=== PATIENT | female | born 1990 | race Caucasian/White ===

== ENCOUNTER 2017-12-06 13:06 | Emergency (ER) | payer SELFPAY ==
[2017-12-06 13:13] VITALS: BP 151/86; PULSE 89; TEMP 98.2; BMI 28.7
--- NOTE | 2017-12-06 13:39 | PDOC ---
Post Exposure HPI - General History Source: Patient Exam Limitations: No Limitations - History of Present Illness Initial Comments: 12/06/17 13:48 The patient is a 27 year old female, with no significant past medical history, who presents to the emergency department with, s/p puncture wound to the right palm. The patient works at a dental office, after cleaning up after a procedure she was poked by an IV needle in her right palm. She noted blood on her right palm and cleaned the area as per protocol. The patients tetanus is up to date. She came into the ED for medication and further evaluation. The patient she was working on reports he has no indication of HIV. She denies recent fevers, chills, headache or dizziness. She denies recent nausea, vomit, diarrhea or constipation. She denies recent dysuria, frequency, urgency or hematuria. She denies recent chest pain or shortness of breath. Allergies: NKA Past surgical history: None reported. Social history: Nonsmoker. Denies EtOH use and recreational drug use. <Vic Grant - Last Filed: 12/06/17 13:52> - General History Source: Patient Exam Limitations: No Limitations <Alejandra Land - Last Filed: 12/06/17 20:21> - General Chief Complaint: Non EmpBld/Body Flud Exposure Stated Complaint: STUCK BY NEEDLE Time Seen by Provider: 12/06/17 13:27 Past History <Vic Grant - Last Filed: 12/06/17 13:52> - Past Medical History COPD: No - Suicide/Smoking/Psychosocial Hx Smoking History: Never smoked Have you smoked in the past 12 months: No Information on smoking cessation initiated: No Hx Alcohol Use: No Drug/Substance Use Hx: No Substance Use Type: Marijuana <Alejandra Land - Last Filed: 12/06/17 20:21> - Past Medical History Allergies/Adverse Reactions: Allergies Allergy/AdvReac Type Severity Reaction Status Date / Time No Known Allergies Allergy Verified 12/06/17 13:09 Home Medications: Ambulatory Orders NK [No Known Home Medication] 12/06/17 Review of Systems - Review of Systems Able to Perform ROS?: Yes Comments:: 12/06/17 13:49 CONSTITUTIONAL: Absent: fever, no chills, no fatigue EYES: Absent: visual changes ENT: Absent: ear pain, no sore throat CARDIOVASCULAR: Absent: chest pain, no palpitations RESPIRATORY: Absent: cough, no SOB GI: Absent: abdominal pain, no nausea, no vomiting, no constipation, no diarrhea GENITOURINARY: Absent: dysuria, no frequency, no hematuria MUSKULOSKELETAL: Absent: back pain, no arthralgia, no myalgia HAND: Present: Puncture wound to the right palm. SKIN: Absent: rash NEURO: Absent: headache <Vic Grant - Last Filed: 12/06/17 13:52> *Physical Exam - Vital Signs Last Vital Signs Temp Pulse Resp BP Pulse Ox 98.2 F 89 18 151/86 100 12/06/17 13:10 12/06/17 13:10 12/06/17 13:10 12/06/17 13:10 12/06/17 13:10 - Physical Exam Comments: 12/06/17 13:52 GENERAL: Well-appearing, well-nourished. No apparent distress. HEENT: Normocephalic, atraumatic. PERRL, EOM intact. CARDIOVASCULAR: Normal S1, S2. Regular rate and rhythm. PULMONARY: Clear to auscultation bilaterally. ABDOMEN: Soft, non-distended, non-tender. EXTREMITIES: Normal ROM in all four extremities. No gross deformities. +HAND: Small pinhole to the palm. SKIN: Warm, dry. No rash NEUROLOGICAL: No focal neurological deficits. <Vic Grant - Last Filed: 12/06/17 13:52> - Vital Signs Last Vital Signs Temp Pulse Resp BP Pulse Ox 98.2 F 89 18 151/86 100 12/06/17 13:10 12/06/17 13:10 12/06/17 13:10 12/06/17 13:10 12/06/17 13:10 <Alejandra Land - Last Filed: 12/06/17 20:21> Medical Decision Making - Medical Decision Making 12/06/17 13:34 A/P: Patient with needlestick to right palm from a used IV. Patient reports that source patient's mother states patient is negative for HIV and hepatitis, radiation safety officer is attempting to have source patient tested. Patient is requesting PEP medication, will draw labs prior to administration. Tetanus received one year ago. 12/06/17 20:20 Laboratory Results - last 24 hr 12/06/17 12/06/17 12/06/17 13:53 13:53 13:53 WBC 6.0 RBC 4.26 Hgb 14.2 Hct 41.2 MCV 96.7 H MCH 33.2 MCHC 34.4 RDW 12.0 Plt Count 164 MPV 8.2 Neutrophils % 53.9 Lymphocytes % 37.8 Monocytes % 7.3 Eosinophils % 0.6 Basophils % 0.4 Sodium 141 Potassium 4.0 Chloride 106 Carbon Dioxide 28 Anion Gap 7 L BUN 10 Creatinine 0.7 Creat Clearance w eGFR > 60 Random Glucose 79 Uric Acid 4.6 Calcium 9.0 Phosphorus 3.8 Total Bilirubin 0.5 GGT 30 AST 19 ALT 18 Alkaline Phosphatase 39 L LD Total 151 Total Protein 7.4 Albumin 4.2 Triglycerides 67 Cholesterol 181 Urine HCG, Qual HIV 1&2 Antibody Screen Negative HIV P24 Antigen Negative 12/06/17 13:53 WBC RBC Hgb Hct MCV MCH MCHC RDW Plt Count MPV Neutrophils % Lymphocytes % Monocytes % Eosinophils % Basophils % Sodium Potassium Chloride Carbon Dioxide Anion Gap BUN Creatinine Creat Clearance w eGFR Random Glucose Uric Acid Calcium Phosphorus Total Bilirubin GGT AST ALT Alkaline Phosphatase LD Total Total Protein Albumin Triglycerides Cholesterol Urine HCG, Qual Negative HIV 1&2 Antibody Screen HIV P24 Antigen Is unremarkable, urine is negative, HIV is negative we'll DC patient home to follow-up with PMD on PEP <Alejandra Land - Last Filed: 12/06/17 20:21> *DC/Admit/Observation/Transfer - Attestations Scribe Attestion: Documentation prepared by Vic Grant, acting as clinical medical assistant for Alejandra Land NP. <Vic Grant - Last Filed: 12/06/17 13:52> - Discharge Dispostion Decision to Admit order: No <Alejandra Land - Last Filed: 12/06/17 20:21> Diagnosis at time of Disposition: Needle stick injury - Discharge Dispostion Disposition: HOME Condition at time of disposition: Stable - Referrals Referrals: Corrina Lemos MD [Staff Physician] - - Patient Instructions Additional Instructions: I have given you a supply of medication, please make sure to take as prescribed one of the medications was given for 7 days. If at 30, you need to make an appointment within one week for full course of therapy for the 7 day supply. Please follow-up with her primary care doctor to follow up with hepatitis screening, please let them call medical records to obtain results. [phone] - Post Discharge Activity Forms/Work/School Notes: Back to Work
[2017-12-06] MEDS ORDERED: HIV POST EXPOSURE PROPHYLAXIS KIT NR ONE (13:40)
[2017-12-06 14:03] LABS: BASO % 0.4 % (0-2.0); EOS % 0.6 % (0-4.5); HEMATOCRIT 41.2 % (32.4-45.2); HEMOGLOBIN 14.2 GM/dL (10.7-15.3); LYMPH % 37.8 % (8-40); MCH 33.2 pg (25.7-33.7); MCHC 34.4 g/dl (32.0-36.0); MEAN CELL VOLUME 96.7 fl (80-96); MEAN PLT VOLUME 8.2 fl (7.5-11.1); MONO % 7.3 % (3.8-10.2); NEUT % 53.9 % (42.8-82.8); PLATELET COUNT 164 K/MM3 (134-434); RBC 4.26 M/mm3 (3.60-5.2)
[2017-12-06 14:30] LABS: ALBUMIN 4.2 g/dl (3.4-5.0); ANION GAP 7 (8-16); BILIRUBIN,TOTAL 0.5 mg/dL (0.2-1.0); BLOOD UREA NITROGEN 10 mg/dL (7-18); CHLORIDE 106 mmol/L (98-107); CHOLESTEROL 181 mg/dL (50-200); CO2 28 mmol/L (21-32); CREATININE 0.7 mg/dL (0.55-1.02); GAMMA GLUTAMYL TRANSPEPTIDASE 30 U/L (5-85); GLUCOSE,RANDOM 79 mg/dL (74-106); LDH 151 U/L (84-246); PHOSPHOROUS 3.8 mg/dL (2.5-4.9); SGOT/AST 19 U/L (15-37); SGPT/ALT 18 U/L (12-78); SODIUM 141 mmol/L (136-145); TOT PROT 7.4 g/dl (6.4-8.2); TRIGLYCERIDES 67 mg/dL (35-160); URIC ACID 4.6 mg/dL (2.6-7.2)
[2017-12-06 14:32] LABS: ALK PHOS 39 U/L (45-117)
[2017-12-06] MEDS ORDERED: HIV POST EXPOSURE PROPHYLAXIS KIT PO ONE (15:37)
[2017-12-07 08:08] LABS: HBsAG SCREEN Negative (Negative); HEPATITIS B CORE ANTIBODY Negative (Negative)
== END 2017-12-06 15:39 | disposition home or self-care (01) ==
LOC: JERFT 13:06
DX: Z77.21 Contact with and (suspected) exposure to potentially hazardous body fluids (principal); S61.431A Puncture wound without foreign body of right hand, initial encounter; W46.1XXA Contact with contaminated hypodermic needle, initial encounter; Y93.89 Activity, other specified; Y92.531 Health care provider office as the place of occurrence of the external cause; Y99.0 Civilian activity done for income or pay
CPT/HCPCS: 36415; 80053; 82465; 82977; 83615; 84100; 84478; 84550; 84703; 85025; 86704; 87340; 87389; 99282-25